=== PATIENT | male | born 1960 | race Caucasian/White ===

== ENCOUNTER 2017-05-09 10:08 | Inpatient (IN) | payer BC ==
[2017-05-07 14:46] VITALS: BMI 36.2
[2017-05-09] MEDS ORDERED: PROPOFOL 20 ML ONE ×2 (11:47→15:50)
[2017-05-09] MEDS ORDERED: BUPIVACAINE HCL/PF 0.5% (5MG/ML) 10 ML VIAL ONE (13:20)
[2017-05-09] MEDS ORDERED: ROCURONIUM BROMIDE 50 MG/5 ML VIAL ONE ×2 (13:42→14:19)
[2017-05-09] MEDS ORDERED: MIDAZOLAM HCL 2 MG/2 ML SINGLE DOSE VIAL ONE (13:42)
[2017-05-09] MEDS ORDERED: LIDOCAINE HCL/PF 2% SDV 5ML VIAL ONE (13:43)
[2017-05-09] MEDS ORDERED: SUCCINYLCHOLINE CHLORIDE 200 MG/10 ML VIAL ONE (14:04)
[2017-05-09] MEDS ORDERED: LEVOFLOXACIN 500 MG PREMIX BAG IVPB ONE (14:10)
[2017-05-09] MEDS ORDERED: LEVOFLOXACIN 500 MG IVPB 100 ML IVPB ONE (14:16)
[2017-05-09] MEDS ORDERED: ePHEDrine SULFATE 50 MG/1 ML AMPULE ONE (14:24)
[2017-05-09] MEDS ORDERED: DEXAMETHASONE SOD PHOSPHATE 4 MG/1 ML VIAL ONE (14:26)
--- NOTE | 2017-05-09 14:29 | PREOP ---
DATE OF ADMISSION: 05/09/2017 CHIEF COMPLAINT: Morbid obesity. HISTORY OF PRESENT ILLNESS: The patient is a 56-year-old gentleman with a history of morbid obesity for many years despite multiple attempts at dietary weight loss. He received nutrition, psychological, cardiac, and pulmonary evaluation and clearance prior to undergoing elective weight-loss surgery. PAST MEDICAL HISTORY: Significant for: 1. Sleep apnea. 2. Also significant for hypertension. 3. GE reflux disease. 4. Hypercholesterolemia. PAST SURGICAL HISTORY: Includes a hernia repair and foot surgery. ALLERGIES: He is allergic to: 1. PENICILLIN. 2. LATEX. MEDICATIONS AT HOME: Include: 1. Nexium. 2. Lexapro. 3. Hydrochlorothiazide. 4. Prevacid. 5. Benicar. 6. Crestor. REVIEW OF SYMPTOMS: Neurologic: Within normal limits. Gastrointestinal: Occasional heartburn. Pulmonary: Within normal limits. Cardiac: Within normal limits. Extremities: Only foot pain. PHYSICAL EXAMINATION:General: Awake, alert, in no acute distress. HEENT: No masses. Lungs: Clear bilaterally. Heart: Regular sinus rhythm. Abdomen: Positive obesity. Small 1- to 1.5-cm umbilical hernia. Soft. Nontender on palpation. Extremities: Within normal limits. IMPRESSION:Morbid obesity. Umbilical hernia. PLAN: Surgery for a laparoscopic vertical sleeve gastrectomy, possible open vertical sleeve gastrectomy, possible umbilical hernia repair. CHAPARRO ARTEAGA M.D. [id number]
[2017-05-09] MEDS ORDERED: NEOSTIGMINE METHYLSULFATE 0.5 MG/ML - 10 ML MDV ONE (15:44)
[2017-05-09] MEDS ORDERED: GLYCOPYRROLATE 0.2 MG/1 ML VIAL ONE (15:44)
[2017-05-09] MEDS ORDERED: ONDANSETRON 4 MG/2 ML VIAL IVPB PRN (16:06)
[2017-05-09] MEDS ORDERED: METOCLOPRAMIDE HCL INJECTION 10 MG/2 ML VIAL IVPB PRN (16:08)
[2017-05-09] MEDS ORDERED: ONDANSETRON 4 MG/2 ML VIAL IVPUSH PRN (16:17)
[2017-05-09 16:57] LABS: MCH 31.3 pg (25.7-33.7); MCHC 34.8 g/dl (32.0-35.9); MEAN PLT VOLUME 8.2 fl (7.5-11.1); PLATELET COUNT 262 K/MM3 (134-434); RDW 13.1 % (11.9-15.9); WHITE BLOOD COUNT 14.3 K/mm3 (4.0-10.0)
--- NOTE | 2017-05-09 17:11 | OP ---
DATE OF OPERATION: 05/09/2017 PREOPERATIVE DIAGNOSES: 1. Morbid obesity. 2. Sleep apnea. 3. Hypertension. 4. Umbilical hernia. POSTOPERATIVE DIAGNOSES: 1. Morbid obesity. 2. Sleep apnea. 3. Hypertension. 4. Umbilical hernia. PROCEDURE PERFORMED: 1. Laparoscopic vertical sleeve gastrectomy. 2. Repair of umbilical hernia. 3. Diagnostic laparoscopy. OPERATING SURGEON: Cliff Fink MD PILLOW FILLER: Shaheen Garcia MD ANESTHESIA: General. EXPECTED BLOOD LOSS: 30 mL. OPERATIVE PROCEDURE: The patient was brought into the operating room and placed on the operating room table in a supine position. All precautions were taken initially including padding for the back and the feet and Venodyne boots were placed on both lower extremities. At that point, the abdomen was prepped and draped in the usual manner. A Veress needle was placed in the left upper quadrant and a pneumoperitoneum was established. A number 12 bladeless trocar was placed to the left upper quadrant. Through that trocar a laparoscopic camera was placed. Under direct vision, a number 15 bladeless trocar was placed in the midline in a supraumbilical position followed by a number 5 bladeless trocar in the right upper quadrant and a number 5 bladeless trocar below the left costal margin. A Angeli liver retractor was then placed in the epigastrium to retract the left lobe of the liver. The patient was then placed in a 20 degree reverse Trendelenburg position. The pylorus was noted on distal stomach and 6 cm was measured proximally from there. At that point, the operating surgeon lifted the greater curve of the stomach toward the anterior abdominal wall as the assisted surgeon retracted the gastrocolic ligament inferiorly. The LigaSure device was used to dissect the gastrocolic ligament off the greater curve of the stomach. This continued in a superior and vertical direction as I continued to dissect the short gastric vessels off the greater curve until the final short gastric vessels between the superior pole of the spleen and the proximal fundus was divided. At this juncture, anesthesia advanced a No. 40 bougie. With the bougie held along the lesser curvature of the stomach, a series of ajit was performed with the first 2 being black load ajit 6 cm in length along the bougie. This was followed by a series of purple load ajit along the bougie until the final staple was fired in the left upper quadrant and the greater curve was now completely detached from the lesser curve. It should be noted that prior to firing each staple, both the anterior and posterior houston were checked that they were equal in distance and in the area of the gastroesophageal junction approximately 1 to 1.5 cm of serosa remained on the anterior and posterior houston. At this junction, with saline placed around the staple line, and Anesthesia inserted air into the bougie, which showed the entire stomach distended and no obstruction down to the pylorus and no leaks were noted. At that point, the bougie was removed by Anesthesia and the greater curve of the stomach, which was resected, was removed through the number 15 trocar site in the midline. At that point, the number 12 trocar site in the left upper quadrant was closed with endoclosure device to prevent internal hernia and to prevent bleeding. Under direct vision, all trocars were removed and pneumoperitoneum was released. The number 15 trocar site was then closed with 0 Vicryl on a figure-of-8 suture and this was tied and it was completely closed so no hernia was expected. Attention was now directed to the umbilical hernia. An incision was made at the lower portion of the umbilical hernia along the portion of the umbilicus and this incision was carried down through skin and subcutaneous tissue down to the fascia, which had a defect of approximately 1-cm. The fascia was cleaned and any scar tissue remaining inside the abdomen was cleaned off from the anterior abdominal wall and the fascia. At that point, 1 interrupted 0 Vicryl suture was placed on both sides of the fascia and then tied and now the hernia defect was closed. All trocar sites received 0.25% Marcaine and were closed with 4-0 Biosyn in subcuticular fashion. Dressings were applied. The patient was awoken from anesthesia and transferred out of the operating room to the recovery room in stable condition. Ivon [id number]
[2017-05-09 17:16] LABS: ALBUMIN 3.5 g/dl (3.4-5.0); ALK PHOS 78 U/L (45-117); ANION GAP 8 (8-16); BILIRUBIN,TOTAL 0.6 mg/dL (0.2-1.0); CALCIUM 8.3 mg/dL (8.5-10.1); CO2 28 mmol/L (21-32); CREATININE 0.9 mg/dL (0.7-1.3); GLUCOSE,RANDOM 171 mg/dL (74-106); SGOT/AST 32 U/L (15-37); TOT PROT 6.5 g/dl (6.4-8.2)
[2017-05-09] MEDS ORDERED: METOCLOPRAMIDE HCL INJECTION 10 MG/2 ML VIAL ONE (17:17)
[2017-05-09] MEDS ORDERED: HYDROmorphone HCL CARPU-JECT 2 MG/1 ML DISP.SYRIN ONE (17:19)
[2017-05-09] MEDS: HYDROmorphone HCL CARPU-JECT 1 MG/1 ML DISP.SYRIN IVPB PRN ×2 (17:20→23:05)
[2017-05-09 17:24] LABS: SGPT/ALT 41 U/L (12-78)
[2017-05-09] MEDS: SODIUM CHLORIDE 1,000 ML IV SCH (18:00)
[2017-05-09] MEDS: LACTATED RINGERS SOLUTION 1,000 ML IV SCH (18:38)
[2017-05-09] MEDS: FAMOTIDINE 20 MG/50 ML IVPB 50 ML IVPB SCH (22:45)
[2017-05-09] MEDS: ENOXAPARIN NA (PORCINE) 40 MG/0.4 ML DISP.SYRIN SQ SCH (22:45)
[2017-05-10] MEDS: SODIUM CHLORIDE 1,000 ML IV SCH
[2017-05-10] MEDS: ALPRAZolam 0.25 MG TABLET PO PRN ×2 (03:38→18:27)
[2017-05-10] MEDS: HYDROmorphone HCL CARPU-JECT 1 MG/1 ML DISP.SYRIN IVPB PRN (06:46)
[2017-05-10 07:14] LABS: MCH 31.7 pg (25.7-33.7); MCHC 35.2 g/dl (32.0-35.9); MEAN PLT VOLUME 8.2 fl (7.5-11.1); PLATELET COUNT 240 K/MM3 (134-434); RDW 13.4 % (11.9-15.9); WHITE BLOOD COUNT 10.9 K/mm3 (4.0-10.0)
[2017-05-10 07:41] LABS: ALBUMIN 3.2 g/dl (3.4-5.0); ALK PHOS 72 U/L (45-117); ANION GAP 10 (8-16); BILIRUBIN,TOTAL 0.5 mg/dL (0.2-1.0); CALCIUM 7.7 mg/dL (8.5-10.1); CO2 27 mmol/L (21-32); CREATININE 0.8 mg/dL (0.7-1.3); GLUCOSE,RANDOM 122 mg/dL (74-106); SGOT/AST 26 U/L (15-37); SGPT/ALT 36 U/L (12-78); TOT PROT 6.2 g/dl (6.4-8.2)
--- NOTE | 2017-05-10 08:53 | PN ---
Progress Note (short form) - Note Progress Note: Anesthesia postop note 56 y/o M s/p GA for laparoscopic gastric sleeve POD#1, vss, aaox3, seems uncomfortable, c/o left shoulder pain, was just medicated, possible referred shoulder pain post pneumoperitoneum. encouraged to ambulate and use incentive spirometry. No anesthesia complications.
[2017-05-10] MEDS: FAMOTIDINE 20 MG/50 ML IVPB 50 ML IVPB SCH ×2 (10:14→21:39)
[2017-05-10] MEDS: ENOXAPARIN NA (PORCINE) 40 MG/0.4 ML DISP.SYRIN SQ SCH ×2 (10:14→21:39)
[2017-05-10] MEDS ORDERED: oxyCODONE HCL 5 MG TABLET PO PRN (12:43)
[2017-05-10] MEDS ORDERED: SODIUM CHLORIDE 1,000 ML IV SCH (12:45)
[2017-05-10] MEDS ORDERED: SIMETHICONE 80 MG TAB.CHEW (FP) PO PRN (13:22)
--- NOTE | 2017-05-10 13:22 | HP ---
Admitting History and Physical - Primary Care Physician PCP: Aylin Pizarro - Admission Chief Complaint: SLEEVE GASTRECTOMY History of Present Illness: 56 Y/O MALE WITH SLEEVE GASTRECTOMY POD #1 , HISTORY OF HTN, DM, LIPIDEMIA, OBESITY, OA, SLEEP APNEA History Source: Patient, Medical Record Limitations to Obtaining History: No Limitations - Past Medical History Cardiovascular: Yes: HTN, Hyperlipdemia Musculoskeletal: Yes: Chronic low back pain, Osteoarthritis - Smoking History Smoking history: Never smoked - Alcohol/Substance Use Hx Alcohol Use: (1-2/year) Home Medications - Allergies Allergies/Adverse Reactions: Allergies Allergy/AdvReac Type Severity Reaction Status Date / Time latex Allergy Intermediate Rash Verified 05/09/17 10:35 Penicillins Allergy Unknown Verified 05/09/17 10:35 - Home Medications Home Medications: Ambulatory Orders Aspirin [Aspirin EC] 325 mg PO DAILY 01/26/16 Cholecalciferol (Vitamin D3) [Vitamin D3 -] 1,000 unit PO DAILY 01/26/16 Escitalopram Oxalate [Lexapro -] 20 mg PO DAILY 01/26/16 Esomeprazole Magnesium [Nexium 24Hr] 20 mg PO ASDIR PRN 01/26/16 Olmesartan Medoxomil [Benicar (Nf)] 40 mg PO DAILY 01/26/16 Newman-3 Fatty Acids/Fish Oil [Fish Oil 1,000 mg Softgel] 1 each PO BID 01/26/16 Rosuvastatin [Crestor -] 5 mg PO HS 01/26/16 Hydrochlorothiazide 25 mg PO DAILY 05/07/17 Lansoprazole [Prevacid] 30 mg PO PRN PRN 05/07/17 Oxycodone HCl/Acetaminophen [Percocet 5-325 mg Tablet] 1 tab PO Q6H PRN #20 tablet MDD 4 05/09/17 Review of Systems - Review of Systems Constitutional: reports: No Symptoms Eyes: reports: No Symptoms HENT: reports: No Symptoms Neck: reports: No Symptoms Cardiovascular: reports: No Symptoms Respiratory: reports: No Symptoms Gastrointestinal: reports: Indigestion Genitourinary: reports: No Symptoms Musculoskeletal: reports: Joint Pain Integumentary: reports: No Symptoms Neurological: reports: No Symptoms Endocrine: reports: No Symptoms Hematology/Lymphatic: reports: No Symptoms Psychiatric: reports: No Symptoms Physical Examination Vital Signs: Vital Signs Temperature 98.8 F 05/10/17 10:00 Pulse Rate 97 H 05/10/17 10:00 Respiratory Rate 18 05/10/17 10:00 Blood Pressure 151/94 05/10/17 10:00 O2 Sat by Pulse Oximetry (%) 100 05/10/17 10:00 Constitutional: Yes: Mild Distress Eyes: Yes: WNL HENT: Yes: WNL Neck: Yes: WNL Cardiovascular: Yes: WNL Respiratory: Yes: WNL Gastrointestinal: Yes: Tenderness, Rebound Renal/: Yes: WNL Musculoskeletal: Yes: Joint Stiffness Extremities: Yes: Delayed Capillary Refill Edema: No Peripheral Pulses WNL: Yes Integumentary: Yes: WNL Wound/Incision: Yes: Dressing Dry and Intact Neurological: Yes: WNL ...Motor Strength: LUE Psychiatric: Yes: WNL Labs: CBC, BMP 05/10/17 06:30 05/10/17 06:30 Imaging - Results Other: Image Reviewed Problem List - Problems (1) S/P laparoscopic sleeve gastrectomy Code(s): Z98.84 - BARIATRIC SURGERY STATUS (2) Hypertension Code(s): I10 - ESSENTIAL (PRIMARY) HYPERTENSION Qualifiers: Hypertension type: essential hypertension Qualified Code(s): I10 - Essential (primary) hypertension; I10 - Essential (primary) hypertension; I10 - Essential (primary) hypertension (3) Obesity Code(s): E66.9 - OBESITY, UNSPECIFIED Qualifiers: Obesity type: due to excess calories Serious obesity comorbidity presence: unspecified whether serious comorbidity present Body mass index: BMI 50.0-59.9 (4) DMII (diabetes mellitus, type 2) Code(s): E11.9 - TYPE 2 DIABETES MELLITUS WITHOUT COMPLICATIONS Qualifiers: Diabetes mellitus complication status: without complication Diabetes mellitus prison insulin use: without prison use Qualified Code(s): E11.9 - Type 2 diabetes mellitus without complications; E11.9 - Type 2 diabetes mellitus without complications; E11.9 - Type 2 diabetes mellitus without complications; E11.9 - Type 2 diabetes mellitus without complications (5) Lipidemia Code(s): E78.5 - HYPERLIPIDEMIA, UNSPECIFIED Qualifiers: Hyperlipidemia type: pure hypercholesterolemia Qualified Code(s): E78.00 - Pure hypercholesterolemia, unspecified; E78.00 - Pure hypercholesterolemia, unspecified; E78.00 - Pure hypercholesterolemia, unspecified; E78.0 - Pure hypercholesterolemia (6) Left shoulder pain Code(s): M25.512 - PAIN IN LEFT SHOULDER Qualifiers: Chronicity: acute Qualified Code(s): M25.512 - Pain in left shoulder ; M25.512 - Pain in left shoulder Assessment/Plan POSTOP DAY #1 OOB TO CHAIR DVT PROPHYLAXIS DIET BARIATRIC TRIAL RESTART BP MEDS GASX PAIN CONTROL
--- NOTE | 2017-05-10 15:01 | PN ---
Progress Note (short form) - Note Progress Note: POD#! Afebrile, VSS P-90-98 BP-148-157/91-96 Pt doing well Main complaint is left shoulder pain No N/V Paula PO clear liquids- 2 oz po tid UGI- no leak, no obstruction WBC-10.9 H/H-12.7/36.0 P- Pt encourged to be OOB-ambulating, using incentive spirometer Agree with re-start BP meds
[2017-05-10] MEDS: VALSARTAN 160 MG TABLET (UD) PO SCH (15:39)
[2017-05-10] MEDS: METHYL SALICYLATE/MENTHOL OINT 30 GM TUBE TP SCH ×2 (15:41→15:43)
[2017-05-10] MEDS: LACTATED RINGERS SOLUTION 1,000 ML IV SCH (18:26)
[2017-05-11 08:22] VITALS: TEMP 98.7
[2017-05-11] MEDS: FAMOTIDINE 20 MG/50 ML IVPB 50 ML IVPB SCH (09:26)
[2017-05-11] MEDS: ENOXAPARIN NA (PORCINE) 40 MG/0.4 ML DISP.SYRIN SQ SCH (09:26)
[2017-05-11] MEDS: VALSARTAN 160 MG TABLET (UD) PO SCH (09:26)
[2017-05-11] MEDS: METHYL SALICYLATE/MENTHOL OINT 30 GM TUBE TP SCH (09:29)
[2017-05-11 09:47] VITALS: BP 139/84; PULSE 95
--- NOTE | 2017-05-11 11:39 | DS ---
Physical Examination Vital Signs: Vital Signs Temperature 98.7 F 05/11/17 08:18 Pulse Rate 95 H 05/11/17 09:46 Respiratory Rate 20 05/11/17 08:22 Blood Pressure 139/84 05/11/17 09:46 O2 Sat by Pulse Oximetry (%) 98 05/11/17 08:22 Constitutional: Yes: Mild Distress Eyes: Yes: WNL HENT: Yes: WNL Neck: Yes: WNL Cardiovascular: Yes: WNL Respiratory: Yes: WNL Gastrointestinal: Yes: Tenderness Renal/: Yes: WNL Musculoskeletal: Yes: WNL Extremities: Yes: WNL Edema: No Peripheral Pulses WNL: Yes Integumentary: Yes: WNL Wound/Incision: Yes: Clean/Dry Neurological: Yes: WNL ...Motor Strength: WNL Psychiatric: Yes: WNL Labs: CBC, BMP 05/10/17 06:30 05/10/17 06:30 Discharge Summary Reason For Visit: MORBID OBESITY Current Active Problems DMII (diabetes mellitus, type 2) (Acute) Hypertension (Acute) Left shoulder pain (Acute) Lipidemia (Acute) Obesity (Acute) S/P laparoscopic sleeve gastrectomy (Acute) Procedures: Principal: SLEEVE GASTRECTOMY Condition: Good - Instructions Diet, Activity, Other Instructions: PO clear liquids- 3 oz PO 4-5 times per day May have 1 cup of water/ice chips Q2H No lifting over 30 pounds for 3 weeks May shower beginning 05/12/[address] Fink office 05/15 or 05/16 for follow-up instructions Disposition: HOME - Home Medications Comprehensive Discharge Medication List: Ambulatory Orders Escitalopram Oxalate [Lexapro -] 20 mg PO DAILY 01/26/16 Olmesartan Medoxomil [Benicar -] 40 mg PO DAILY 01/26/16 Rosuvastatin [Crestor -] 5 mg PO HS 01/26/16 Hydrochlorothiazide 25 mg PO DAILY 05/07/17 Esomeprazole Magnesium [Nexium 24Hr] 20 mg PO DAILY #30 tablet. 05/10/17 Oxycodone HCl/Acetaminophen [Percocet 5-325 mg Tablet] 1 tab PO Q6H PRN #20 tablet MDD 4 05/10/17
--- NOTE | 2017-05-13 09:33 | PATH ---
Surgical Pathology Report Patient Name: AUTUMN KOLB [facility]. Rec. #: [id number] /Age/Gender: 1960 (Age: 56) / M Account: [id number] Location: 4 W TELEMETRY U Taken: 05/09/2017 Received: 05/10/2017 Reported: 05/13/2017 Physicians: Cliff Fink M.D. Specimen(s) Received GREATER CURVATURE OF STOMACH Clinical History Morbid obesity Final Diagnosis STOMACH, GREATER CURVATURE, SLEEVE GASTRECTOMY: PORTION OF UNREMARKABLE STOMACH. IMMUNOSTAIN FOR H. PYLORI IS NEGATIVE. Electronically Signed Dar Carrizales M.D. Gross Description Received in formalin, labeled "greater curvature of stomach," is a 162 gram, 18.0 x 4.5 x 2.5 cm. portion of stomach with a stapled margin of resection. The serosa is walker-calderon with minimal attached fat. The mucosa is walker-pink with normal folds. No mucosal masses are identified. Developer Designer sections are submitted in one cassette. /05/10/[address] [facility]/05/10/2017
== END 2017-05-11 12:30 | disposition home or self-care (01) | DRG 621 ==
LOC: JSAMEDAYSX 10:08 → EDSTATUS 14:30 → J2W 18:11 → J4W 05-10 02:58
PROVIDERS: ADMIT Surgery; ATTEND Surgery
PROC: 0DB64Z3 Excision of Stomach, Percutaneous Endoscopic Approach, Vertical (ICD-10-PCS; principal; 2017-05-09 12:00)
PROC: 0WQF4ZZ Repair Abdominal Wall, Percutaneous Endoscopic Approach (ICD-10-PCS; 2017-05-09 12:00)
DX: E66.01 Morbid (severe) obesity due to excess calories (principal); Z68.36 Body mass index [BMI] 36.0-36.9, adult; Z71.3 Dietary counseling and surveillance; I10 Essential (primary) hypertension; E11.9 Type 2 diabetes mellitus without complications; E78.5 Hyperlipidemia, unspecified; M19.90 Unspecified osteoarthritis, unspecified site; G47.39 Other sleep apnea; M54.5 Low back pain; M25.512 Pain in left shoulder; K42.9 Umbilical hernia without obstruction or gangrene
CPT/HCPCS: 36415; 74241-TC; 80053; 85027; 86850; 86900; 86901; 88307-TC; 94760

== ENCOUNTER 2018-05-08 06:10 | Day surgery (SDC) | payer OTHER, BC ==
[2018-05-06 17:33] VITALS: BMI 30.7
[~2018-05-08 06:10] MED LIST: CLINDAMYCIN 900 MG PREMIX BAG IVPB ONE
[2018-05-08] MEDS ORDERED: LIDOCAINE HCL/PF 2% SDV 5ML VIAL ONE (07:10)
[2018-05-08] MEDS ORDERED: ceFAZolin SODIUM 1 GM VIAL ONE (07:10)
[2018-05-08] MEDS ORDERED: MIDAZOLAM HCL 2 MG/2 ML SINGLE DOSE VIAL ONE ×2 (07:11)
[2018-05-08] MEDS ORDERED: PROPOFOL 20 ML ONE ×2 (07:11)
[2018-05-08] MEDS ORDERED: SUCCINYLCHOLINE CHLORIDE 200 MG/10 ML VIAL ONE (07:11)
[2018-05-08] MEDS ORDERED: DEXAMETHASONE SOD PHOSPHATE/PF 10 MG/ML SDV ONE (07:17)
[2018-05-08] MEDS ORDERED: ROPIVACAINE HCL 0.5% 30ML VIAL ONE (07:17)
--- NOTE | 2018-05-08 08:05 | HP ---
Satellite H - Chief Complaint Chief Complaint: right shoulder pain - Past Medical History Allergies/Adverse Reactions: Allergies Allergy/AdvReac Type Severity Reaction Status Date / Time latex Allergy Intermediate Rash Verified 05/08/18 06:45 Penicillins Allergy Unknown Verified 05/08/18 06:45 Cardiovascular: Yes: HTN, Hyperlipdemia Musculoskeletal: Yes: Chronic low back pain, Osteoarthritis - Current Medications Current Medications: Home Medications Medication Instructions Recorded Escitalopram Oxalate [Lexapro -] 20 mg PO ASDIR 01/26/16 Olmesartan Medoxomil [Benicar -] 40 mg PO DAILY 01/26/16 Rosuvastatin [Crestor -] 5 mg PO DAILY 01/26/16 Hydrochlorothiazide 25 mg PO DAILY 05/07/17 Esomeprazole Magnesium [Nexium 20 mg PO DAILY #30 tablet.dr 05/10/17 24Hr] Hydrocodone/Acetaminophen [[place] 1 each PO Q6H PRN #40 tablet MDD 4 05/08/18 5-325 Tablet] Satellite Physical Exam - Physical Examination Vital Signs: Vital Signs Period Temp Pulse Resp BP Sys/Chaves Pulse Ox Last 24 Hr 98.7 F 71 20 147/95 99 General Appearance: Well Nourished, Well Developed, Alert & Oriented x3 ENT: Clear Lung: Normal air movement Heart: Regular rate & rhythm Extremities: Other (right shoulder- + ttp ,decr rom, + neer, + [facility], + empty can, nvi MRI + rct) Neurological: Intact, Alert, Oriented Satellite Impression/Plan - Impression/Plan Impression: right shoulder rct Operative Procedure: right shoulder arthroscopy with RONDA MCGILL Date to be Performed: 05/08/18
[2018-05-08] MEDS ORDERED: ePHEDrine SULFATE 50 MG/1 ML AMPULE ONE (08:40)
--- NOTE | 2018-05-08 09:38 | OP ---
Operative Note - Note: Operative Date: 05/08/18 Pre-Operative Diagnosis: right shoulder impingement, ACJ OA Operation: right shoulder arthroscopy, decompression, distal clavicle excision Post-Operative Diagnosis: Same as Pre-op Surgeon: Angel Freeman Dryer Operator: Kwaku Pollack Anesthesiologist/HAUL DRIVER: Lukasz Felipe Anesthesia: General, Local Specimens Removed: shavings Estimated Blood Loss (mls): 50 Drains, Volume Out (mls): 0 Blood Volume Replaced (mls): 0 Fluid Volume Replaced (mls): 700 Operative Report Dictated: Yes
[2018-05-08] MEDS ORDERED: LACTATED RINGERS SOLUTION 1,000 ML IV SCH (10:00)
[2018-05-08] MEDS ORDERED: oxyCODONE HCL 5 MG TABLET PO PRN ×2 (10:00)
[2018-05-08] MEDS ORDERED: ONDANSETRON 4 MG/2 ML VIAL IVPUSH PRN (10:00)
--- NOTE | 2018-05-08 10:13 | OP ---
DATE OF OPERATION: 05/08/2018 PREOPERATIVE DIAGNOSIS: Right shoulder impingement syndrome, possible rotator cuff tear and acromioclavicular joint osteoarthritis. POSTOPERATIVE DIAGNOSES: Right shoulder impingement syndrome and acromioclavicular joint osteoarthritis. PROCEDURE: Right shoulder arthroscopy, subacromial decompression, and distal clavicle excision. SURGEON: Angel Freeman MD DUAL RATE DEALER: ISIDRA Gandhi ANESTHESIOLOGIST: Lukasz Felipe MD ANESTHESIA: Right interscalene block with LMA anesthesia. BLOOD LOSS: 50 mL BLOOD GIVEN: None. FLUID REPLACEMENT: 1000 mL DRAINS: None. COMPLICATIONS: None. SPECIMENS: Arthroscopic shavings. This patient is a 57-year-old male with a preoperative diagnosis of a right shoulder impingement syndrome, possible rotator cuff tear. After understanding the potential risks, complications, alternatives, and benefits of surgery versus nonsurgical treatment, the patient elected to undergo this procedure. Patient was brought to the operating room, peripheral IV placed, and IV sedation given. One gram of IV Ancef was given. A right interscalene block was performed. LMA anesthesia was induced. Patient was placed into the beach chair position with ample padding throughout, and the right upper extremity was prepped and draped in usual sterile fashion. The bony landmarks were marked out with a marking pen. A posterior portal was established, and diagnostic glenohumeral arthroscopy was performed. Inside the joint, things looked good. He had no glenohumeral osteoarthritis. The labrum and the biceps tendon looked good. There was some synovitis. The undersurface of the rotator cuff was mildly frayed, but there was no obvious tear. Next, our attention turned to the subacromial space. There was a tremendous amount of inflammatory bursitis. Lateral portal was established under direct visualization using a spinal needle. Green cannula was introduced in the subacromial space, and using the ArthroCare wand, I did an extensive debridement/bursectomy. This revealed a large spur on both the distal clavicle and the undersurface of the acromion. There were several jagged aspects to it. At the top surface, the rotator cuff was directly visualized. The arm was put through a full range of motion. There was no rotator cuff tear. Additional bursectomy was performed with the ArthroCare wand and shaver. Next, the 5.5-mm oval cecil was used to do a bony subacromial decompression. I then took down the spur on the undersurface of the distal clavicle. The area was identified reverse and with the shaver. All debris was removed. I checked the decompression of both areas. It looked good. I put the arm through a full range of motion. Under direct visualization, there were no points of near impingement. Again, the top surface of the rotator cuff was directly visualized, and again, I did not see any evidence of a rotator cuff tear. The area was copiously irrigated and washed out. All debris removed with the shaver. The arthroscopy portals were closed with 3-0 nylon sutures. The area was then washed and dried. The incisions were covered with Aquacel dressing. He was extubated. Blood loss was minimal at 50 mL. His arm was put into a sling. He was brought down out of the beach chair position. There were no complications during the case, and he was brought to the ambulatory recovery room in stable condition. Ivon [id number]
[2018-05-08 12:39] VITALS: BP 140/72; PULSE 85; TEMP 95.9
--- NOTE | 2018-05-09 13:40 | PATH ---
Surgical Pathology Report Patient Name: AUTUMN KOLB [facility]. Rec. #: [id number] /Age/Gender: 1960 (Age: 57) / M Account: [id number] Location: [facility] SURGICAL Taken: 05/08/2018 Received: 05/08/2018 Reported: 05/09/2018 Physicians: Angel Freeman M.D. Specimen(s) Received RIGHT SHOULDER SHAVINGS Clinical History Tear right shoulder Final Diagnosis SHOULDER SHAVINGS, RIGHT, ARTHROSCOPY: FRAGMENTS OF DENSE FIBROCONNECTIVE TISSUE, ADIPOSE TISSUE, AND SKELETAL MUSCLE. Electronically Signed Lisa Maloney M.D. Gross Description Received in formalin labeled "right shoulder shavings," is a 2.1 x 1.5 x 0.2 cm aggregate of walker calderon soft tissue fragments. The specimen is entirely submitted in one cassette. /05/08/2018 [place]/08/2018
== END 2018-05-08 12:37 | disposition home or self-care (01) ==
LOC: JASU-SURG 06:10
PROVIDERS: ATTEND Orthopaedic Surgery
PROC: 0RBJ4ZZ Excision of Right Shoulder Joint, Percutaneous Endoscopic Approach (ICD-10-PCS; principal; 2018-05-08 08:00)
PROC: 0PB94ZZ Excision of Right Clavicle, Percutaneous Endoscopic Approach (ICD-10-PCS; 2018-05-08 08:00)
DX: M75.41 Impingement syndrome of right shoulder (principal); M19.011 Primary osteoarthritis, right shoulder
CPT/HCPCS: 88304-TC; 94760